=== PATIENT | female | born 1980 | race American Indian/Alaskan Native ===

== ENCOUNTER 2016-08-06 16:34 | Emergency (ER) | payer OTHER, MEDICAID ==
--- NOTE | 2016-08-06 19:41 | Emergency Department Report ---
Chief Complaint: Psych Stated Complaint: ALL OVER PAIN Time Seen by Provider: 08/06/16 19:59 - HPI History of Present Illness: She is a 35-year-old female who presents to ED complaining is depressed and feeling anxious. Patient states she is paranoid and schizophrenic and on medication but is not currently on medication. Patient is a poor historian she rambles a lot and keeps talking about her mother and how her family members are out to get her. Patient denies any fever/chills/nausea/vomiting/abdominal pain shortness of breath or any other problems. - ROS Review of Systems: As noted in HPI - Exam Vital Signs: Vital Signs 08/06/16 18:04 Temperature 98.1 F Pulse Rate 97 H Blood Pressure 147/102 O2 Sat by Pulse 100 Oximetry Physical Exam: GENERAL: Alert and oriented x3, no apparent distress, Normal Gait, atraumatic. NECK: Supple. Non edematous, No carotid bruits. No lymphadenopathy or thyromegaly. LUNGS: Symetrical with respiration, No wheezing, no rales or crackles, CTAB. HEART: S1, S2 present, regular rate and rhythm without murmur, no rubs, no gallops. ABDOMEN: No organomegaly was noted,Positive bowel sounds, soft, and non- distended. . Nontender to palpation on all Quadrants, NO CVA tenderness. Denies SI/HI SKIN: Warm and dry, No lesions, No ulceration or induration present. MSE screening note: Focused history and physical exam performed. Due to findings the following was ordered: ED Medical Decision Making - Medical Decision Making Vital signs stable. Patient is alert and oriented 3. Patient to be seen by ED physician. Mental protocol ordered. ED Disposition for MSE Condition: Stable
[2016-08-06 21:46] LABS: Basophils % (Auto) 0.7 % (0.0-1.8); Eosinophils % (Auto) 0.8 % (0.0-4.3); Hematocrit 38.7 % (30.3-42.9); Mean Corpuscular HGB Conc 34 % (30-34); Mean Corpuscular Hemoglobin 31 pg (28-32); Mean Corpuscular Volume 93 fl (79-97); Platelet Count 277 K/mm3 (140-440); Red Blood Count 4.15 M/mm3 (3.65-5.03); Red Cell Distribution Width 14.4 % (13.2-15.2)
[2016-08-06 22:08] LABS: Blood Urea Nitrogen 18 mg/dL (7-17); Calcium 9.7 mg/dL (8.4-10.2); Carbon Dioxide 28 mmol/L (22-30); Chloride 101.2 mmol/L (98-107); Glucose 95 mg/dL (65-100); Potassium 4.2 mmol/L (3.6-5.0); Sodium 143 mmol/L (137-145)
[2016-08-06 22:09] LABS: Anion Gap 18 mmol/L
[2016-08-06 23:04] LABS: Urine Drugs of Abuse Note Disclamer
[2016-08-06 23:25] LABS: Bilirubin,Urine NEG (Negative); Blood,Urine NEG (Negative); Ketones,Urine TR mg/dL (Negative); Leukocyte Esterase,Urine NEG (Negative); Mucus,Urine FEW /HPF; Nitrite,Urine NEG (Negative); Protein,Urine <15 mg/dL mg/dL (Negative); Urobilinogen,Urine < 2.0 mg/dL (<2.0)
[2016-08-07 07:56] VITALS: BP 147/111
[2016-08-07] MEDS ORDERED: TORADOL IM ONE (09:39)
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
== END 2016-08-07 11:25 | disposition home or self-care (01) ==
LOC: ED 16:34
DX: F20.9 Schizophrenia, unspecified (principal); G89.29 Other chronic pain; M79.1 Myalgia; F31.9 Bipolar disorder, unspecified; F41.9 Anxiety disorder, unspecified; F32.9 Major depressive disorder, single episode, unspecified; F17.200 Nicotine dependence, unspecified, uncomplicated
CPT/HCPCS: 36415; 80048; 80178; 80307; 81001; 81025; 82550; 85025; 96372; 99284; G0480; J1885; 80320

== ENCOUNTER 2016-11-08 17:30 | Emergency (ER) | payer OTHER, MEDICAID ==
[2016-11-08 18:07] VITALS: BP 153/105
--- NOTE | 2016-11-08 19:16 | Emergency Department Report ---
ED General Adult HPI - General Chief complaint: Recheck/Abnormal Lab/Rx Stated complaint: TONGUE PUNCTURE Time Seen by Provider: 11/08/16 19:04 Source: patient Mode of arrival: Ambulatory Limitations: No Limitations - History of Present Illness Initial comments: This is a 36-year-old female that presents for a tetanus shot. Patient stated has been eating cornbread during lunch today and bit into a thumb tack. Patient denies any bleeding episode. She stated started feeling a metal taste in her mouth. Patient denies any numbness or tingling, bleeding, chest pain, shortness of breath, nausea or vomiting. Patient denies any pain. Patient stated does not know when her last tetanus shot was. Patient nontoxic or ill in appearance. No signs of distress noted. -: Sudden, This afternoon Severity scale (0 -10): 0 Associated Symptoms: denies other symptoms. denies: confusion, chest pain, cough, diaphoresis, fever/chills, headaches, loss of appetite, malaise, nausea/ vomiting, rash, seizure, shortness of breath, syncope, weakness - Related Data Home Medications Medication Instructions Recorded Confirmed Last Taken ALPRAZolam [Xanax TAB] 2 mg PO TID PRN 03/05/15 07/17/16 03/05/15 Wellbutrin 450 mg PO DAILY 03/05/15 07/17/16 03/05/15 Biotin 1 mg PO QDAY 12/30/15 07/17/16 Unknown Ergocalciferol(Vitamin D2)(Nf) 400 unit PO DAILY 12/30/15 07/17/16 Unknown [Vitamin D] QUEtiapine [SEROquel] 50 mg PO QHS 12/30/15 07/17/16 Unknown Amitriptyline [Elavil] 50 mg PO QHS 07/17/16 07/17/16 Unknown [place] Carbonate [Eskalith] 50 mg PO BID 07/17/16 07/17/16 Unknown tiZANidine [Zanaflex] 4 mg PO TID PRN 07/17/16 07/17/16 Unknown Previous Rx's Medication Instructions Recorded Last Taken Type Benzonatate [Tessalon Perles] 100 mg PO Q8HR PRN #30 capsule 08/07/16 Unknown Rx Tizanidine HCl [Zanaflex] 2 mg PO TID PRN #20 capsule 08/07/16 Unknown Rx Allergies Allergy/AdvReac Type Severity Reaction Status Date / Time levofloxacin [From Levaquin] AdvReac Hives Verified 11/08/16 18:01 loratadine [From Claritin] AdvReac Rash Verified 11/08/16 18:01 Penicillins AdvReac Rash Verified 11/08/16 18:01 sulfamethoxazole AdvReac Hives Verified 11/08/16 18:01 [From Bactrim] trimethoprim [From Bactrim] AdvReac Hives Verified 11/08/16 18:01 ED Review of Systems ROS: Stated complaint: TONGUE PUNCTURE Other details as noted in HPI Constitutional: denies: chills, fever Eyes: denies: eye pain, eye discharge, vision change ENT: denies: ear pain, throat pain Respiratory: denies: cough, shortness of breath, wheezing Cardiovascular: denies: chest pain, palpitations Endocrine: no symptoms reported Gastrointestinal: denies: abdominal pain, nausea, diarrhea Genitourinary: denies: urgency, dysuria, discharge Musculoskeletal: denies: back pain, joint swelling, arthralgia Skin: denies: rash, lesions Neurological: denies: headache, weakness, paresthesias Psychiatric: denies: anxiety, depression Hematological/Lymphatic: denies: easy bleeding, easy bruising ED Past Medical Hx - Past Medical History Hx Psychiatric Treatment: Yes (Anxiety, major depression, bipolar, PTSD) Additional medical history: Vaginal delivery x 2, Hx. of pain management, Hx. of rehab, IBS - Surgical History Additional Surgical History: Left arm surgery, Left femur surgery, Right hip screw, Tracheostomy with subsequent removal - Social History Smoking Status: Never Smoker Substance Use Type: Prescribed - Medications Home Medications: Home Medications Medication Instructions Recorded Confirmed Last Taken Type ALPRAZolam [Xanax TAB] 2 mg PO TID PRN 03/05/15 07/17/16 03/05/15 History Wellbutrin 450 mg PO DAILY 03/05/15 07/17/16 03/05/15 History Biotin 1 mg PO QDAY 12/30/15 07/17/16 Unknown History Ergocalciferol(Vitamin D2)(Nf) 400 unit PO DAILY 12/30/15 07/17/16 Unknown History [Vitamin D] QUEtiapine [SEROquel] 50 mg PO QHS 12/30/15 07/17/16 Unknown History Amitriptyline [Elavil] 50 mg PO QHS 07/17/16 07/17/16 Unknown History [place] Carbonate [Eskalith] 50 mg PO BID 07/17/16 07/17/16 Unknown History tiZANidine [Zanaflex] 4 mg PO TID PRN 07/17/16 07/17/16 Unknown History Benzonatate [Tessalon Perles] 100 mg PO Q8HR PRN #30 capsule 08/07/16 Unknown Rx Tizanidine HCl [Zanaflex] 2 mg PO TID PRN #20 capsule 08/07/16 Unknown Rx ED Physical Exam - General Limitations: No Limitations General appearance: alert, in no apparent distress - Head Head exam: Present: atraumatic, normocephalic - Eye Eye exam: Present: normal appearance, PERRL, EOMI Pupils: Present: normal accommodation - ENT ENT exam: Present: normal exam, normal orophraynx, mucous membranes moist, TM's normal bilaterally - Neck Neck exam: Present: normal inspection, full ROM. Absent: tenderness, meningismus - Respiratory Respiratory exam: Present: normal lung sounds bilaterally. Absent: respiratory distress, wheezes, rales, rhonchi, stridor - Cardiovascular Cardiovascular Exam: Present: regular rate, normal rhythm. Absent: systolic murmur, diastolic murmur, rubs, gallop - GI/Abdominal GI/Abdominal exam: Present: soft, normal bowel sounds. Absent: distended, tenderness, guarding, rebound - Extremities Exam Extremities exam: Present: normal inspection, full ROM, normal capillary refill. Absent: tenderness, pedal edema - Back Exam Back exam: Present: normal inspection, full ROM. Absent: tenderness, CVA tenderness (R), CVA tenderness (L) - Neurological Exam Neurological exam: Present: alert, oriented X3, CN II-XII intact, normal gait - Psychiatric Psychiatric exam: Present: normal affect, normal mood - Skin Skin exam: Present: warm, dry, intact, normal color. Absent: rash ED Course Vital Signs 11/08/16 18:02 Temperature 98.7 F Pulse Rate 93 H Respiratory 18 Rate Blood Pressure 153/105 O2 Sat by Pulse 99 Oximetry ED Medical Decision Making - Medical Decision Making Ed course: 36-year-old female presents for a tetanus booster 1- Patient does not seem toxic or ill in appearance. 2- Patient received tetanus IM. Pt tolerated well withi no signs of distress. 3-I instructed to follow-up with her primary care doctor due to 5 days. 4- at the time of discharge the patient agrees to discharge plan. No further questions noted by the patient. Critical care attestation.: If time is entered above; I have spent that time in minutes in the direct care of this critically ill patient, excluding procedure time. ED Disposition Clinical Impression: Tetanus Disposition: DISCHARGED TO HOME OR SELFCARE Is pt being admited?: No Does the pt Need Aspirin: No Condition: Stable Instructions: Diphtheria/Acellular Pertussis/Tetanus Booster Vaccine (Tdap) ( Injection) Additional Instructions: Follow up with her primary care doctor in 3-5 days Referrals: PRIMARY CARE, [Primary Care Provider] - 3-5 Days
[2016-11-08] MEDS ORDERED: BOOSTRIX IM ONE (19:19)
== END 2016-11-08 19:47 | disposition home or self-care (01) ==
LOC: ED 17:30
DX: S01.552A Open bite of oral cavity, initial encounter (principal); F31.9 Bipolar disorder, unspecified; F32.9 Major depressive disorder, single episode, unspecified; F43.10 Post-traumatic stress disorder, unspecified; Z90.89 Acquired absence of other organs; W50.3XXA Accidental bite by another person, initial encounter; Y93.89 Activity, other specified; Y99.8 Other external cause status; Y92.89 Other specified places as the place of occurrence of the external cause
CPT/HCPCS: 90471; 90715; 99283

== ENCOUNTER 2017-11-04 09:13 | Emergency (ER) | payer MEDICAID, OTHER ==
[2017-11-04 10:17] VITALS: BP 147/101
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
[2017-11-04 12:24] LABS: HCG Qualitative,Urine Negative (Negative)
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
--- NOTE | 2017-11-04 14:03 | XRay Report ---
CERVICAL SPINE, 3 views: History: Neck pain. Findings: There is mild reversal of the normal cervical lordosis. Mild degenerative disc disease with anterior spurring is identified at C5-6 and C6-7. There is no evidence for fracture, malalignment or bone lesion. The prevertebral soft tissues are within normal limits. Impression: Mild cervical spondylosis. No evidence for acute injury to the cervical spine.
== END 2017-11-04 14:38 | disposition home or self-care (01) ==
LOC: ED 09:13
DX: S13.9XXA Sprain of joints and ligaments of unspecified parts of neck, initial encounter (principal); S30.0XXA Contusion of lower back and pelvis, initial encounter; F17.200 Nicotine dependence, unspecified, uncomplicated; Z88.1 Allergy status to other antibiotic agents; Z88.0 Allergy status to penicillin; Z88.2 Allergy status to sulfonamides; Z88.8 Allergy status to other drugs, medicaments and biological substances; V89.2XXA Person injured in unspecified motor-vehicle accident, traffic, initial encounter; Y93.89 Activity, other specified; Y92.89 Other specified places as the place of occurrence of the external cause; Y99.8 Other external cause status
CPT/HCPCS: 72050; 81025; 99284